=== PATIENT | female | born 1980 ===

== ENCOUNTER 2018-01-15 16:29 | Emergency (ER) | payer MEDICARE, MEDICAID ==
[2018-01-15 16:58] VITALS: BMI 32.5
[2018-01-15 17:07] VITALS: BP 117/83; PULSE 78; RESP 17; TEMP 98.8; O2SAT 99
--- NOTE | 2018-01-15 18:06 | C.PDOC ---
Time Seen by Provider: 01/15/18 17:05 Chief Complaint (Nursing): Anxiety Past Medical History Vital Signs: Last Vital Signs Temp 98.8 F 01/15/18 16:58 Pulse 78 01/15/18 16:58 Resp 17 01/15/18 16:58 BP 117/83 01/15/18 16:58 Pulse Ox 99 01/15/18 16:58 - Medical History PMH: Anxiety (Panic Attacks), Asthma, CAD, COPD, Depression, Fibromyalgia, Hypercholesterolemia, Malignancy (Cervical) Family History: States: Unknown Family Hx - Social History Hx Tobacco Use: Yes Hx Alcohol Use: Yes Hx Substance Use: No - Immunization History Hx Tetanus Toxoid Vaccination: No Hx Influenza Vaccination: Yes (2016) Hx Pneumococcal Vaccination: No ED Course And Treatment O2 Sat by Pulse Oximetry: 99 Disposition Counseled Patient/Family Regarding: Studies Performed, Diagnosis, Need For Followup, Rx Given - Disposition Referrals: [facility] at [facility] [Outside] Disposition: HOME/ ROUTINE Disposition Time: 18:04 Condition: STABLE Additional Instructions: follow up with medical clinic in 2 days call to make an appointment take medications as prescribed return to hospital if symptoms worsens or progress Prescriptions: ALPRAZolam [Xanax] 0.25 mg PO TID PRN #6 tab PRN Reason: Anxiety Instructions: Anxiety, Adult (DC) Forms: [facility] (Korean), General Discharge Instructions - Clinical Impression Clinical Impression: Panic attack
--- NOTE | 2018-01-15 18:08 | C.PDOC ---
History Of Present Illness 37 y/o female presents to the ED complaining of anxiety, onset just prior to arrival. Patient states she became anxious while watching music videos. She has had panic attacks in the past, and reports current symptoms feel similar. Denies any suicidal or homicidal ideation. On arrival patient states she feels better now. Time Seen by Provider: 01/15/18 17:05 Chief Complaint (Nursing): Anxiety History Per: Patient History/Exam Limitations: no limitations Onset/Duration Of Symptoms: Mins Current Symptoms Are (Timing): Better Past Medical History Reviewed: Historical Data, Nursing Documentation, Vital Signs Vital Signs: Last Vital Signs Temp 98.8 F 01/15/18 16:58 Pulse 78 01/15/18 16:58 Resp 17 01/15/18 16:58 BP 117/83 01/15/18 16:58 Pulse Ox 99 01/15/18 18:09 - Medical History PMH: Anxiety (Panic Attacks), Asthma, CAD, COPD, Depression, Fibromyalgia, Hypercholesterolemia, Malignancy (Cervical) Family History: States: Unknown Family Hx - Social History Hx Tobacco Use: Yes Hx Alcohol Use: Yes Hx Substance Use: No - Immunization History Hx Tetanus Toxoid Vaccination: No Hx Influenza Vaccination: Yes (2017) Hx Pneumococcal Vaccination: No Review Of Systems Except As Marked, All Systems Reviewed And Found Negative. Psych: Positive for: Anxiety Physical Exam - Physical Exam Appears: Non-toxic, No Acute Distress Skin: Normal Color, Warm, Dry Head: Atraumatic, Normacephalic Eye(s): bilateral: Normal Inspection, PERRL, EOMI Nose: Normal Oral Mucosa: Moist Neck: Normal ROM, Supple Chest: Symmetrical Cardiovascular: Rhythm Regular, No Murmur Respiratory: Normal Breath Sounds, No Rales, No Rhonchi, No Wheezing Extremity: Bilateral: Atraumatic, Normal Color And Temperature, Normal ROM Neurological/Psych: Oriented x3, Normal Speech ED Course And Treatment ECG: Interpreted By Me, Viewed By Me ECG Rhythm: Sinus Rhythm (at 81 bpm, with normal intervals, normal axis, no ST/ T wave abnormalities) O2 Sat by Pulse Oximetry: 99 (RA) Pulse Ox Interpretation: Normal Medical Decision Making Medical Decision Making: Assessment: Panic attack Plan: --EKG Patient informed of normal EKG and counseled regarding diagnosis. Will d/c home with prescription for Xanax. Advised to follow up with PMD for further evaluation and treatment. Disposition Counseled Patient/Family Regarding: Diagnosis, Need For Followup, Rx Given - Disposition Referrals: [facility] at [facility] [Outside] Disposition: HOME/ ROUTINE Disposition Time: 18:04 Condition: STABLE Additional Instructions: follow up with medical clinic in 2 days call to make an appointment take medications as prescribed return to hospital if symptoms worsens or progress Prescriptions: ALPRAZolam [Xanax] 0.25 mg PO TID PRN #6 tab PRN Reason: Anxiety Instructions: Anxiety, Adult (DC) Forms: General Discharge Instructions, [facility] (Welsh) - POA Present On Arrival: None - Clinical Impression Clinical Impression: Panic attack - Scribe Statement The provider has reviewed the documentation as recorded by the Scribe (Valerie Villanueva) Provider Attestation: All medical record entries made by the Scribe were at my direction and personally dictated by me. I have reviewed the chart and agree that the record accurately reflects my personal performance of the history, physical exam, medical decision making, and the department course for this patient. I have also personally directed, reviewed, and agree with the discharge instructions and disposition.
--- NOTE | 2018-01-16 13:01 | CARD ---
APPROVED REPORT EKG Measurement Heart [id number] <Conclusion> Normal sinus rhythm Septal infarct, age undetermined Abnormal ECG
== END 2018-01-15 18:19 | disposition home or self-care (01) ==
LOC: C.ER 16:29
DX: F41.0 Panic disorder [episodic paroxysmal anxiety] (principal)

== ENCOUNTER 2018-11-05 15:42 | Emergency (ER) | payer MEDICARE, MEDICAID ==
[2018-11-05 15:42] VITALS: BMI 32.5
[2018-11-05 16:29] VITALS: RESP 18
[2018-11-05] MEDS ORDERED: Sodium Chloride 0.9% 1,000 ML IV STA (17:10)
--- NOTE | 2018-11-05 17:14 | C.PDOC ---
History Of Present Illness 38 y/o F c PMHx Lupus, fibromyalgia p/w pelvic pain x 1 week. She states there is a severe pain in the pelvic region and it feels as though something is pushing its way out. She denies any actual discharge or masses and states it aissatou ears normal and she had sexual intercourse with her normally most recently 2 days ago. She states she did have a recent [facility] appointment during which her OBGYN informed her that she feels firm masses on bimanual exam. Patient also reports burning epigastric pain with nausea and loss of appetite, which she states feels similar to her gastritis. <Nick Mckeon - Last Filed: 11/05/18 18:47> <Nick Mckeon - Last Filed: 11/05/18 18:47> <Woody Huffman - Last Filed: 11/05/18 19:53> Time Seen by Provider: 11/05/18 16:51 Chief Complaint (Nursing): Abdominal Pain Past Medical History Vital Signs: Last Vital Signs Temp 98.9 F 11/05/18 16:25 Pulse 72 11/05/18 16:25 Resp 18 11/05/18 16:25 BP 117/86 11/05/18 16:25 Pulse Ox 99 11/05/18 16:25 - Medical History PMH: Anxiety (Panic Attacks), Asthma, CAD, COPD, Depression, Fibromyalgia, Hypercholesterolemia, Malignancy (Cervical) Family History: States: Unknown Family Hx - Social History Hx Tobacco Use: Yes Hx Alcohol Use: Yes Hx Substance Use: No - Immunization History Hx Tetanus Toxoid Vaccination: No Hx Influenza Vaccination: No Hx Pneumococcal Vaccination: No <Nick Mckeon - Last Filed: 11/05/18 18:47> Vital Signs: Last Vital Signs Temp 98.9 F 11/05/18 16:25 Pulse 72 11/05/18 16:25 Resp 18 11/05/18 16:25 BP 117/86 11/05/18 16:25 Pulse Ox 99 11/05/18 18:47 <Woody Huffman - Last Filed: 11/05/18 19:53> Review Of Systems Except As Marked, All Systems Reviewed And Found Negative. Constitutional: Negative for: Fever Cardiovascular: Negative for: Chest Pain <Nick Mckeon - Last Filed: 11/05/18 18:47> Physical Exam - Physical Exam Additional Physical Exam Comments: Gen: NAD Head: NC/AT Eyes: PERRL ENT: MMM Neck: Supple Chest: No tenderness CV: Regular rate Lungs: CTA b/l Abd: Soft, diffuse tenderness with guarding, mostly suprapubic Back: No CVA tenderness Skin: No rash Extremities: No edema Neuro: Alert, no focal deficit <[facility] - Last Filed: 11/05/18 18:47> ED Course And Treatment - Laboratory Results Result Diagrams: 11/05/18 17:26 11/05/18 17:26 O2 Sat by Pulse Oximetry: 99 [facility] Last Filed: 11/05/18 18:47> - Laboratory Results Result Diagrams: 11/05/18 17:26 11/05/18 17:26 Lab Results: Total Bilirubin 0.7 mg/dL (0.2-1.3) 11/05/18 17:26 AST 30 U/L (14-36) 11/05/18 17:26 ALT 24 U/L (9-52) 11/05/18 17:26 Alkaline Phosphatase 85 U/L (38-126) 11/05/18 17:26 Total Protein 7.7 g/dL (6.3-8.3) 11/05/18 17:26 Albumin 4.8 g/dL (3.5-5.0) 11/05/18 17:26 Globulin 3.0 gm/dL (2.2-3.9) 11/05/18 17:26 Albumin/Globulin Ratio 1.6 (1.0-2.1) 11/05/18 17:26 Lipase 65 U/L (23-300) 11/05/18 17:26 Urine Color Yellow (YELLOW) 11/05/18 17:26 Urine Clarity Clear (Clear) 11/05/18 17:26 Urine pH 5.0 (5.0-8.0) 11/05/18 17:26 Ur Specific Martin 1.006 (1.003-1.030) 11/05/18 17:26 Urine Protein Negative mg/dL (NEGATIVE) 11/05/18 17:26 Urine Glucose (UA) Normal mg/dL (Normal) 11/05/18 17:26 Urine Ketones Trace mg/dL (NEGATIVE) 11/05/18 17:26 Urine Blood Negative (NEGATIVE) 11/05/18 17:26 Urine Nitrate Negative (NEGATIVE) 11/05/18 17:26 Urine Bilirubin Negative (NEGATIVE) 11/05/18 17:26 Urine Urobilinogen Normal mg/dL (0.2-1.0) 11/05/18 17:26 Ur Leukocyte Esterase Neg Elton/uL (Negative) 11/05/18 17:26 Urine WBC (Auto) 1 /hpf (0-5) 11/05/18 17:26 Urine RBC (Auto) < 1 /hpf (0-3) 11/05/18 17:26 Ur Squamous Epith Cells 3 /hpf (0-5) 11/05/18 17:26 Urine Bacteria Rare (<OCC) 11/05/18 17:26 Urine HCG, Qual Negative (NEGATIVE) 11/05/18 17:26 Urine HCG, Qual Negative (NEGATIVE) 11/05/18 17:26 <Woody Huffman - Last Filed: 11/05/18 19:53> Medical Decision Making Medical Decision Making: Labs unremarkable. Pending US. Signed out to Night team at change of shift. <Nick Mckeon - Last Filed: 11/05/18 18:47> Disposition <Nick Mckeon - Last Filed: 11/05/18 18:47> Counseled Patient/Family Regarding: Diagnosis - Disposition Disposition Time: 19:50 - POA Present On Arrival: None <Woody Huffman - Last Filed: 11/05/18 19:53> - Disposition Referrals: [facility] at [facility] [Outside] Disposition: HOME/ ROUTINE Condition: STABLE Prescriptions: Tramadol HCl/Acetaminophen [Ultracet Tablet] 1 each PO Q6 #14 tablet Instructions: Uterine Adenomyosis Forms: [employer] [facility] ([place] Citizen) - Clinical Impression Clinical Impression: Pelvic pain, Adenomyosis
[2018-11-05 17:32] LABS: BASO % 0.4 % (0.0-2.0); EOS # 0.1 K/uL (0.0-0.7); EOS % 0.7 % (0.0-4.0); HEMOGLOBIN 14.6 g/dL (11.0-16.0); MEAN CORPUSCULAR HEMOGLOBIN 28.8 pg (27.0-31.0); MEAN CORPUSCULAR HGB CONC 32.5 g/dL (33.0-37.0); MEAN PLATELET VOLUME 9.5 fL (7.2-11.7); MONO # 0.7 K/uL (0.0-0.8); NEUT # 7.7 K/uL (1.8-7.0); NEUT % 66.9 % (50.0-75.0); RBC 5.06 Mil/uL (3.80-5.20); RED CELL DISTRIBUTION WIDTH 14.6 % (11.5-14.5); WHITE BLOOD COUNT 11.6 K/uL (4.8-10.8)
[2018-11-05] MEDS ORDERED: Morphine 4 MG/ML VIAL ONE (17:32)
[2018-11-05 17:40] LABS: MEAN CELL VOLUME 88.4 fL (81.0-99.0)
[2018-11-05 17:48] LABS: ALB/GLOB RATIO 1.6 (1.0-2.1); ALBUMIN 4.8 g/dL (3.5-5.0); ALT/SGPT 24 U/L (9-52); AST/SGOT 30 U/L (14-36); BLOOD UREA NITROGEN 9 mg/dL (7-17); CALCIUM 9.9 mg/dl (8.6-10.4); GFR NON-AFRICAN AMERICAN > 60; LIPASE 65 U/L (23-300)
[2018-11-05 17:50] LABS: SQUAMOUS EPITHIAL 3 /hpf (0-5); URINE BACTERIA RARE (<OCC); URINE BILIRUBIN NEGATIVE (NEGATIVE); URINE BLOOD NEGATIVE (NEGATIVE); URINE CLARITY Clear (Clear); URINE COLOR Yellow (YELLOW); URINE GLUCOSE (UA) NORMAL (Normal); URINE LEUKOCYTE ESTERASE NEG Leu/uL (Negative); URINE PROTEIN NEGATIVE (NEGATIVE); URINE UROBILINOGEN NORMAL mg/dL (0.2-1.0)
[2018-11-05 17:51] LABS: HCG,QUALITATIVE URINE NEGATIVE (NEGATIVE)
[2018-11-05 20:21] VITALS: BP 138/70; PULSE 73; TEMP 98.2; O2SAT 97
--- NOTE | 2018-11-06 08:38 | US ---
Date of service: 11/05/2018 HISTORY: pelvic pain. LMP 10/28/2018 COMPARISON: Pelvic ultrasound 09/18/2016 TECHNIQUE: Grayscale and color Doppler sonographic images were obtained of the pelvis utilizing transabdominal and transvaginal approach. FINDINGS: UTERUS: Retroverted and mildly enlarged in sizemeasuring 11.8 x 5.2 x 6.6 cm. ENDOMETRIUM: Normal in caliber endometrial stripe measures 1 cm. Trace amount of fluid noted in the endometrial canal. CERVIX: Nabothian cyst noted RIGHT OVARY: Measures 3.2 x 3.1 x 2.4 cm. Complex cyst noted measuring 1.5 cm with irregular garibay, possibly involuting/recently ruptured follicle/cyst. Normal flow. LEFT OVARY: Measures 2.7 x 2 x 2.6 cm. Follicles noted. 0.2 cm calcification noted. Normal flow. FREE FLUID: No significant free fluid noted. OTHER FINDINGS: None. IMPRESSION: 1.5 cm complex cyst right ovary with irregular garibay, possibly involuting/recently ruptured follicle/cyst. Trace amount of fluid within the endometrial canal. Correlate clinically. Preliminary impression was provided by the Teleradiology service. Findings are concordant.
== END 2018-11-05 20:21 | disposition home or self-care (01) ==
LOC: C.ER 15:42
DX: R10.2 Pelvic and perineal pain (principal); N80.0 Endometriosis of uterus; E78.00 Pure hypercholesterolemia, unspecified; I25.10 Atherosclerotic heart disease of native coronary artery without angina pectoris; J44.9 Chronic obstructive pulmonary disease, unspecified; M79.7 Fibromyalgia; M32.9 Systemic lupus erythematosus, unspecified; Z72.0 Tobacco use
CPT/HCPCS: 76830; 76856; 80053; 81001; 83690; 84703; 85025; 87086; 96361; 96374; 96375; 99284; J2270; J2405; J7030